=== PATIENT | female | born 1955 | race Two or more races ===

== ENCOUNTER → 2016-12-08 | Outpatient (CLI) | payer OTHER ==
[~2016-12-08] MED LIST: LEVOTHYROXINE PO; PANT40TA3 PO
--- NOTE | 2016-12-08 22:08 | HKNOTE ---
DATE OF SERVICE: 12/08/2016 INTERVAL HISTORY: The patient presents today for a followup examination on her right knee. She was seen initially in the beginning of October and noted to have moderate to advanced osteoarthritis of her right knee. She has had no conservative modalities; therefore, a Monovisc injection was requested and authorized. The patient is here today for her injection. She is having some mild discomfort. Denies any fevers or chills. She elected to proceed with the injection today. PHYSICAL EXAMINATION: Today, she is alert and oriented x4 in no acute distress. Exam of right knee demonstrates range of motion to be 0 to 115 degrees. Varus and valgus forces are stable. There is no effusion. She does have 2+ patellofemoral crepitus. There is no erythema or warmth noted. Compartments are soft. She is neurovascularly intact distally. IMAGING: None done today. ASSESSMENT: Right knee osteoarthritis. PLAN: 1. Monovisc injection to the right knee done under sterile conditions today. 2. Ice and rest. 3. Increase physical activity. 4. Follow up p.r.n. PROCEDURE NOTE: The procedure was fully explained to the patient. Informed consent was obtained prior to starting the procedure. The area was prepped and draped in sterile fashion using Betadine. Ethyl chloride was used to anesthetize the superolateral portion of the right knee. A 22-gauge needle was introduced in the superior lateral aspect of the right knee and 4cc of Monovisc was injected. The patient tolerated the procedure well. Sterile bandage was then applied. All questions and concerns were addressed at the time of the procedure. Dictated By: MARY LOVETT/MINGO Conf#: [id number] DID#: [id number] MTDD
== END | disposition home or self-care (01) ==
LOC: HKI 09:37
PROVIDERS: ATTEND Orthopaedic Surgery
DX: M17.11 Unilateral primary osteoarthritis, right knee (principal)

== ENCOUNTER 2019-04-11 11:28 | Observation (INO) | payer OTHER ==
[~2019-04-11] VITALS: Ht 149.9 cm; Wt 96.0 kg
[2019-04-11] VITALS (16 sets, daily range): BP systolic 108–138; BP diastolic 53–77; PULSE 58–68; RESP 12–22; Ht 149.9 cm; Wt 96.0 kg
[~2019-04-11 11:28] MED LIST changes: +CEFAZOLIN 2 GM/50 ML (PMX) 50 ML IVPB ONE; +SOD CHLORIDE 0.9% 1,000 ML IV SCH; +SUCCINYLCHOLINE CHLORIDE 100 MG/5 ML SYG IV ONE
[2019-04-11] MEDS ORDERED: MELO15TA30 PO (12:18)
[2019-04-11] MEDS ORDERED: LEVO75TA65 PO (12:18)
[2019-04-11] MEDS ORDERED: FAMO20TA18 PO (12:19)
[2019-04-11] MEDS ORDERED: MOME13HF INHALATION (12:19)
[2019-04-11] MEDS ORDERED: CEFAZOLIN 1 GM INJ ONE (13:22)
[2019-04-11] MEDS ORDERED: ONDANSETRON 4 MG INJ ONE (13:22)
[2019-04-11] MEDS ORDERED: FENTAnyl 50 MCG/ML VIAL ONE ×3 (13:22→16:32)
[2019-04-11] MEDS ORDERED: ROCURONIUM 50 MG INJ ONE (13:22)
[2019-04-11] MEDS ORDERED: ROPIVACAINE 0.5 % 30 ML VIAL ONE (13:22)
[2019-04-11] MEDS ORDERED: DEXAMETHASONE 4 MG/ML 5 ML INJ ONE (13:22)
[2019-04-11] MEDS ORDERED: MIDAZOLAM 1 MG/ML 2 ML INJ ONE (13:22)
[2019-04-11] MEDS ORDERED: NEOSTIGMINE 3 MG/3 ML SYRINGE ONE (13:22)
[2019-04-11] MEDS ORDERED: GLYCOPYRROLATE 0.4 MG INJ ONE (13:22)
[2019-04-11] MEDS ORDERED: PROPOFOL 20 ML ONE (13:22)
[2019-04-11] MEDS ORDERED: BUPIVACAINE 0.25%/EPI (SDV) 30 ML INJ ONE (13:47)
--- NOTE | 2019-04-11 13:51 | HPN ---
Date/Time of Note Date/Time of Note DATE: 04/11/19 TIME: 13:51 Interval H&P Admission Note Pt. seen H&P reviewed: No system changes MELBA GUSMAN MD April 11, 2019 13:51
--- NOTE | 2019-04-11 13:51 | PREAC ---
Date/Time of Note Date/Time of Note DATE: 04/11/19 TIME: 13:48 Anesthesia Eval and Record Evaluation Time Pre-Procedure Interview DATE: 04/11/19 TIME: 13:48 Age 63 Sex female NPO: 8 hrs Preoperative diagnosis VENTRAL HERNIA, NO OBSTRUCTION Planned procedure OPEN VENTRAL HERNIA REPAIR WITH MESH Past Medical History Past Medical History: Includes Cardio: Dyslipidemia Endo: Diabetes (PRE DM), Hypothyroid Pulm: Sleep Apnea, Asthma GI: GERD, Morbid obesity, Other (ESOPHAGEAL DYSMOTILITY, FATTY LIVER) Surgery & Anesthesia Issues No known issue Meds Anticoagulation: No Beta Eric within 24 hr: No Reason Beta Eric not given: Pt. not on B-Eric Reported Medications Mometasone-Formoterol (Dulera) 200-5 Mcg/Inh - 13 Gm Hfa.aer.ad, 2 PUFFS INHALATION BID, #1 INHALER 04/11/19 Famotidine* (Famotidine*) 20 Mg Tablet, 20 MG PO BID, #60 TAB 04/11/19 Meloxicam* (Mobic*) 15 Mg Tablet, 15 MG PO DAILY, #30 TAB 04/11/19 Levothyroxine Sodium* (Levoxyl*) 75 Mcg Tablet, 75 MCG PO BEFORE BREAKFAST, #30 TAB 04/11/19 Discontinued Reported Medications [Levothyroxine] No Conflict Check, PO QAM 02/26/16 Discontinued Scripts Pantoprazole* (Protonix*) 40 Mg Tablet.dr, 40 MG PO DAILY for 30 Days, TAB Prov:SHON MARC 03/15/16 Current Medications Sodium Chloride 1,000 ml @ 75 mls/hr [id number] IV Last administered on 04/11/19at 12:45; Admin Dose 75 MLS/HR; Start 04/11/19 at 07:00; Stop 04/11/19 at 20:19 Meds reviewed: Yes Allergies Coded Allergies: No Known Allergy (Unverified , 04/11/19) Allergies Reviewed: Yes Labs/Studies Labs Reviewed: Reviewed by anesthesiologist test: N/A Studies: ECG (NL), CXR (INCREASED INRESTITIAL MARKINGS) Pre-procedure Exam Last vitals Vital Signs Date Temp Pulse Resp B/P (MAP) Pulse Ox O2 O2 Flow FiO2 Time Delivery Rate 04/11/19 97.2 64 16 121/67 96 Room Air 12:56 (85) Airway: Adequate mouth opening, Adequate thyromental dist Mallampati: Mallampati II Teeth: Normal Lung: Normal Heart: Normal ASA Physical Status ASA physical status: 3 Emergency: None Planned Anesthetic General/MAC: ETT Nerve block: TAP (bilateral) Planned Pain Management Single shot nerve block, Parenteral pain med Pre-operative Attestations Prior to commencing anesthesia and surgery, the patient was re-evaluated, there was verification of: *The patient's identity *The results of appropriate recent lab work and preoperative vital signs *The above evaluation not changing prior to induction *Anesthetic plan, risk benefits, alternative and complications discussed with patient/family; questions answered; patient/family understands, accepts and wishes to proceed. Niko Allen M.D. April 11, 2019 13:51
[2019-04-11] MEDS ORDERED: ALBUTEROL 0.083% (NEB) 2.5 MG/3 ML AMP HHN PRN (14:00)
[2019-04-11] MEDS ORDERED: hydrALAzine 20 MG INJ IV PRN (14:00)
[2019-04-11] MEDS ORDERED: TRIMETHOBENZAMIDE 100 MG/ML VIAL IM PRN (14:00)
[2019-04-11] MEDS ORDERED: FENTAnyl 50 MCG/ML VIAL IV PRN ×3 (14:00)
[2019-04-11] MEDS ORDERED: LABETALOL HCL 20MG INJ IV PRN (14:00)
[2019-04-11] MEDS ORDERED: EPHEDrine 25 MG/5 ML SYG IV PRN (14:00)
[2019-04-11] MEDS ORDERED: MEPERIDINE 25 MG INJ IV PRN (14:00)
[2019-04-11] MEDS ORDERED: ONDANSETRON 4 MG INJ IV PRN ×3 (14:00→23:30)
[2019-04-11] MEDS ORDERED: MIDAZOLAM 1 MG/ML 2 ML INJ IV PRN (14:00)
[2019-04-11] MEDS ORDERED: DIPHENHYDRAMINE 50 MG INJ IV PRN (14:00)
[2019-04-11] MEDS ORDERED: OXYCODONE/ACETAMINOPHEN (5/325) TAB PO PRN ×3 (14:00→17:00)
[2019-04-11] MEDS ORDERED: IPRATROPIUM (NEB) 0.5 MG/2.5 ML AMP HHN PRN (14:00)
[2019-04-11] MEDS ORDERED: HYDROmorphONE 1 MG/5 ML IV SYRINGE IV PRN ×3 (14:00)
[2019-04-11] MEDS ORDERED: POLYMYXIN/BACITRACIN 1L IRRIG IRR ONE (14:49)
[2019-04-11] MEDS ORDERED: SUGAMMADEX SODIUM 200 MG/2 ML VIAL IV ONE (16:22)
[2019-04-11] MEDS ORDERED: KETOROLAC 30 MG INJ ONE (16:46)
--- NOTE | 2019-04-11 16:48 | PAC ---
Date/Time of Note Date/Time of Note DATE: 04/11/19 TIME: 16:48 Post-Anesthesia Notes Post-Anesthesia Note Last documented vital signs Vital Signs Date Temp Pulse Resp B/P (MAP) Pulse Ox O2 O2 Flow FiO2 Time Delivery Rate 04/11/19 99.1 16:44 04/11/19 64 16 121/67 96 Room Air 12:56 (85) Activity: WNL Respiratory function: WNL Cardiovascular function: WNL Mental status: Baseline Pain reasonably controlled: Yes Hydration appropriate: Yes Nausea/Vomiting absent: Yes Niko Allen M.D. April 11, 2019 16:48
[2019-04-11] MEDS ORDERED: KETOROLAC 30 MG INJ IM STA (16:55)
--- NOTE | 2019-04-11 16:55 | OPR ---
Date/Time of Note Date/Time of Note DATE: 04/11/19 TIME: 16:42 Operative Report Procedure Date: April 11, 2019 Preoperative Diagnosis Ventral hernia with chronically incarcerated fat Postoperative Diagnosis Ventral hernia with chronically incarcerated fat Operation/Procedure Performed 1. Open repair of ventral hernia with mesh 2. Lysis of adhesions 3. Omentectomy 4. Placement of drain Surgeon see signature line Buckle Gluer RADHA Nicolas Anesthesia Type: general Anesthesiologist: Niko Allen M.D. Estimated Blood Loss: 50 - 100 ml's Transfusion none Specimen Hernia sac and contents Grafts/Implants Bard Ventralex ST Mesh 8cm round Tubes/Drains 15 Serbian round Sandeep drain Complications none Pt Condition Post Procedure: stable Disposition: PACU Indications Patient is an morbidly obese 63-year-old female who presented to the office with a painful bulge involving the midline ventral abdominal wall. She reported increasing pain and discomfort which is limiting her activities of daily living. She was diagnosed on physical exam as having a ventral hernia which was chronically incarcerated with fat. This was confirmed via CT scan. Both operative and nonoperative management was discussed with the patient along with risk and benefits of each. Given the patient's morbid obesity we discussed that she is at higher risk for perioperative morbidity and hernia recurrence. The patient understood all of these risks. Given her severe pain she opted for surgical intervention. The patient was scheduled for elective repair with mesh. All risks and benefits of the procedure including, but not limited to: Wound infection, excessive bleeding, postoperative seroma/hematoma formation, hernia recurrence, chronic pain, etc. were all discussed with the patient in full detail. The patient fully understood and wished to proceed with the procedure. Informed consent was obtained. Procedure Description Patient was brought to the operating room and placed supine on the operating table. Bilateral sequential compression devices were placed on both lower extremities. A dose of broad-spectrum perioperative intravenous antibiotics was given. After the induction of smooth general anesthesia the patient's abdomen was prepped and draped in standard surgical fashion. After performance of the surgical timeout a periumbilical midline incision was made using a 15 blade scalpel. Incision was carried down through the skin and subcutaneous tissues. In the subcutaneous tissues a large hernia sac with incarcerated fat was identified. It was dissected circumferentially from surrounding tissues. Dis section was continued to the level of the anterior rectus fascia. The large hernia sac involved the umbilicus. The umbilicus was dissected off. The fascia was cleaned circumferentially around the sac. The sac was then opened atraumatically. There was viable omentum identified within the sac. Some portions were densely scarred within the sac. The superior aspect of the sac a small portion of colon was identified adhered to the sac. This was gently dissected off. Colon was then reduced back into the peritoneal cavity. A piece of Bard Ventralex ST Mesh 8cm round was used to repair the hernia defect in an underlay fashion. It was secured in place using interrupted 2-0 PDS sutures. The mesh was soaked in antibiotic irrigation prior to insertion into the field. With the repair complete it was inspected and noted to be tension-free and hemostatic. The wound cavity was then irrigated with more antibiotic irrigation. The fascia was then reapproximated over the mesh using #1 PDS sutures in [id number] fashion. The umbilicus was then tacked back down to the fascia using interrupted 3-0 Vicryl suture. Given the amount of space a 15 Serbian round Sandeep drain was placed on top of the fascia and brought out through a separate stab wound in the left lower quadrant. Drain was secured in place using 2-0 nylon sutures and hooked up to bulb suction. Incision was then closed in layers using interrupted 2-0 Vicryl sutures for the subcutaneous tissues. The skin was reapproximated using skin akanksha. 0.25% Marcaine was injected around the area of the incision. Incision was cleaned and sterile dressings were applied as well as an abdominal binder. Patient was awoken from anesthesia and transferred to the recovery room in stable condition. All counts were correct at the end of the case 2. MELBA GUSMAN MD April 11, 2019 16:55
[2019-04-11] MEDS ORDERED: IBUPROFEN 600 MG TAB PO PRN (17:00)
[2019-04-11] MEDS ORDERED: KETOROLAC 30 MG INJ IV PRN (17:00)
[2019-04-11] MEDS ORDERED: HYDROmorphONE 1 MG/ML SYG IV PRN (17:00)
[2019-04-11] MEDS: ACETAMINOPHEN 325 MG TAB PO PRN (20:05)
[2019-04-11] MEDS: SOD CHLORIDE 0.9% 1,000 ML IV SCH ×2 (21:29→22:53)
[2019-04-11] MEDS: FAMOTIDINE 20 MG TAB PO SCH (21:31)
[2019-04-11] MEDS: DOCUSATE SODIUM 100 MG CAP PO SCH (21:31)
[2019-04-11] MEDS ORDERED: METOCLOPRAMIDE 10 MG INJ ONE (22:46)
[2019-04-11] MEDS ORDERED: METOCLOPRAMIDE 10 MG INJ IV PRN (23:00)
[2019-04-12] VITALS (8 sets, daily range): BP systolic 92–116; BP diastolic 53–65; PULSE 59–71; RESP 18–20
[2019-04-12] MEDS ORDERED: METOCLOPRAMIDE 10 MG INJ IV SCH
[2019-04-12] MEDS: OXYCODONE/ACETAMINOPHEN (5/325) TAB PO PRN ×2 (04:55→11:51)
[2019-04-12] MEDS: DOCUSATE SODIUM 100 MG CAP PO SCH ×2 (08:40→11:49)
[2019-04-12] MEDS: FAMOTIDINE 20 MG TAB PO SCH (08:40)
[2019-04-12] MEDS: SOD CHLORIDE 0.9% 1,000 ML IV SCH (08:41)
[2019-04-12] MEDS: ACETAMINOPHEN 325 MG TAB PO PRN (08:41)
--- NOTE | 2019-04-12 10:27 | PN ---
Date/Time of Note Date/Time of Note DATE: 04/12/19 TIME: 10:24 Assessment/Plan Lines/Catheters IV Catheter Type (from Nrsg): Peripheral IV Wolff in Place (from Nrsg): No Assessment/Plan Assessment/Plan 63F S/P Open ventral hernia repair with mesh * H/L IVF * OOB/IS * Continue drain * Surgically stable for discharge home if medically cleared. Will remove akanksha and drain in office. Will need drain teaching prior to discharge * Follow up in office in 2 weeks Discussed with patient and nurse at bedside Subjective 24 Hr Interval Summary Doing well. Pain controlled. Tolerating diet. No nausea. Afebrile. Drain output 70cc old blood. Exam/Review of Systems Vital Signs Vitals Vital Signs Date Temp Pulse Resp B/P (MAP) Pulse Ox O2 O2 Flow FiO2 Time Delivery Rate 04/12/19 71 08:00 04/12/19 97.6 19 92/54 (67) 95 Room Air 07:43 04/11/19 3.0 17:41 Intake and Output 04/11/19 04/11/19 04/12/19 1515:00 23:00 07:00 IntakeIntake Total 3000 ml 1000 ml OutputOutput Total 100 ml 20 ml BalanceBalance 2900 ml 980 ml Exam Free Text/Dictation GENERAL: Morbidly obese, AAO x 3, NAD CARDIOVASCULAR: S1S1 RRR, RESPIRATORY: CTA b/l ABDOMEN: morbidly obese, soft, +BS, appropriate incisional tenderness to palpation. No rebound or guarding. DRESSING: mild saturation EXTREMITIES: FROM x 4 Results Result Diagram: 04/12/19 0513 04/12/19 0513 MELBA GUSMAN MD April 12, 2019 10:27
--- NOTE | 2019-04-12 13:09 | HP ---
Date/Time of Note Date/Time of Note DATE: 04/12/19 TIME: 13:07 Assessment/Plan VTE Prophylaxis Risk score (from Nsg)>0 risk: 4 SCD applied (from Ns): Yes Pharmacological prophylaxis: NA/contraindicated Pharm contraindication: surgical contra Lines/Catheters IV Catheter Type (from Nrsg): Peripheral IV Urinary Cath still in place: No Assessment/Plan Assessment/Plan -Ventral hernia with chronically incarcerated fat. Status post open repair of ventral hernia with mesh by Dr. Steele on 04/11/2019. Continue IV fluid fluids and postoperative antibiotic. Continue Percocet and Dilaudid as needed for pain and Zofran as needed for nausea. Advance diet per surgical recommendations. -Hypothyroidism, continue Synthroid. -Asthma, no acute issues -Morbid obesity with BMI of 42.7 Further recommendations based on clinical course. Plan of care discussed with Dr. Delgado. Result Diagram: 04/12/19 0513 04/12/19 0513 Results 24hrs Laboratory Tests Test 04/12/19 05:13 White Blood Count 10.6 # Red Blood Count 4.08 #L Hemoglobin 12.9 # Hematocrit 38.8 # Mean Corpuscular Volume 95.1 Mean Corpuscular Hemoglobin 31.6 Mean Corpuscular Hemoglobin Concent 33.2 Red Cell Distribution Width 12.2 Platelet Count 239 Mean Platelet Volume 10.3 Immature Granulocytes % 0.500 H Neutrophils % 89.6 H Lymphocytes % 7.7 L Monocytes % 2.1 Eosinophils % 0.0 Basophils % 0.1 Nucleated Red Blood Cells % 0.0 Immature Granulocytes # 0.050 H Neutrophils # 9.5 H Lymphocytes # 0.8 Monocytes # 0.2 L Eosinophils # 0.0 Basophils # 0.0 Nucleated Red Blood Cells # 0.0 Sodium Level 139 Potassium Level 4.3 Chloride Level 110 Carbon Dioxide Level 23 Anion Gap 6 Blood Urea Nitrogen 15 Creatinine 0.49 Est Glomerular Filtrat Rate mL/min > 60 Glucose Level 141 Calcium Level 8.3 L HPI/ROS Admit Date/Time Admit Date/Time April 11, 2019 at 16:52 Hx of Present Illness Patient is 63-year-old female with history of asthma, obesity, and prediabetes. Patient has a 4-year history of ventral hernia and was evaluated by Dr. Steele in the general surgery consultation. Patient wanted definitive surgical intervention for her hernia. Patient was brought to the hospital and underwent open ventral hernia repair with mesh. Postoperatively patient exp eriencing significant pain and patient is admitted for further evaluation and management to medical surgical floor. ROS 12 point review of system is negative except for what mentioned in HPI PMH/Family/Social Past Medical History Medical History: other (Asthma, prediabetes) Medications Current Medications Hydromorphone HCl (Dilaudid) 1 mg Q4 PRN IV PAIN LEVEL 6-10 Last administered on 04/11/19at 21:32; Admin Dose 1 MG; Start 04/11/19 at 17:00 Oxycodone/ Acetaminophen (Percocet (5/ 325)) 1 tab Q6H PRN PO PAIN LEVEL 6-10 Last administered on 04/12/19 11:51; Admin Dose 1 TAB; Start 04/11/19 at 17:00 Ketorolac Tromethamine (Toradol) 30 mg Q6H PRN IV PAIN Last administered on 04/11/19 18:48; Admin Dose 30 MG; Start 04/11/19 at 17:00; Stop 04/14/19 at 16:59 Acetaminophen (Tylenol Tab) 650 mg Q6H PRN PO MILD PAIN(1-3)OR ELEVATED TEMP Last administered on 04/12/19 08:41; Admin Dose 650 MG; Start 04/11/19 at 17:00 Ibuprofen (Motrin) 600 mg Q6H PRN PO PAIN LEVEL 1-5; Start 04/11/19 at 17:00 Famotidine (Pepcid) 20 mg DAILY PO Last administered on 04/12/19 08:40; Admin Dose 20 MG; Start 04/11/19 at 21:00 Sodium Chloride 1,000 ml @ 100 mls/hr Q10H IV Last administered on 04/12/19 08:41; Admin Dose 100 MLS/HR; Start 04/11/19 at 16:33 Docusate Sodium (Colace) 100 mg TID PO Last administered on 04/12/19 11:49; Admin Dose 100 MG; Start 04/11/19 at 21:00 Oxycodone/ Acetaminophen (Percocet (5/ 325)) 2 tab Q4H PRN PO MODERATE PAIN LEVEL 4-6; Start 04/11/19 at 17:00 Metoclopramide HCl (Reglan) 10 mg Q6H PRN IV NAUSEA Last administered on 04/11/19at 22:54; Admin Dose 10 MG; Start 04/11/19 at 23:00 Ondansetron HCl (Zofran Inj) 4 mg Q4 PRN IV NAUSEA AND/OR VOMITING; Start 04/11/19 at 23:30 Coded Allergies: No Known Allergy (Unverified , 04/11/19) Past Surgical History Past Surgical Hx: other ( x2) Family History Significant Family History: no pertinent family hx Social History Alcohol Use: none Smoking Status: Never smoker Drug Use: none Exam/Review of Systems Vital Signs Vitals Vital Signs Date Temp Pulse Resp B/P (MAP) Pulse Ox O2 O2 Flow FiO2 Time Delivery Rate 04/12/19 63 12:00 04/12/19 98.3 19 92/53 (66) 95 Room Air 11:07 04/11/19 3.0 17:41 Intake and Output 04/11/19 04/11/19 04/12/19 1515:00 23:00 07:00 IntakeIntake Total 3000 ml 1000 ml OutputOutput Total 100 ml 20 ml BalanceBalance 2900 ml 980 ml Exam Constitutional: alert, oriented Head: normocephalic Neck: supple Respiratory: clear to auscultation, normal air movement Cardiovascular: nl pulses Gastrointestinal: soft, tender, other (S/p open ventral hernia repair) Musculoskeletal: nl extremities to inspection Extremities: normal pulses Neurological: nl mental status Skin: nl SHON Sheffield April 12, 2019 13:09
[2019-04-12] MEDS ORDERED: ONDA4TAB13 PO (14:03)
[2019-04-12] MEDS ORDERED: OXYC-438 PO (14:03)
--- NOTE | 2019-04-12 21:01 | DS ---
Date/Time of Note Date/Time of Note DATE: 04/12/19 TIME: 20:58 Discharge Summary Admission/Discharge Info Admit Date/Time April 11, 2019 at 16:52 Discharge Date/Time April 12, 2019 at 16:30 Patient Condition: Stable Hx of Present Illness Patient is 63-year-old female with history of asthma, obesity, and prediabetes. Patient has a 4-year history of ventral hernia and was evaluated by Dr. Steele in the general surgery consultation. Patient wanted definitive surgical intervention for her hernia. Patient was brought to the hospital and underwent open ventral hernia repair with mesh. Postoperatively patient experi encing significant pain and patient is admitted for further evaluation and management to medical surgical floor. Hospital Course -Ventral hernia with chronically incarcerated fat. Status post open repair of ventral hernia with mesh by Dr. Steele on 04/11/2019. Continue IV fluid fluids and postoperative antibiotic. Continue Percocet and Dilaudid as needed for pain and Zofran as needed for nausea. Advance diet per surgical recommendations. RN to teach pt how to empty CECILIA drain. -Hypothyroidism, continue Synthroid. -Asthma, no acute issues -Morbid obesity with BMI of 42.7 Plan of care discussed with Dr. Delgado. Home Meds Active Scripts Oxycodone HCl/Acetaminophen (Oxycodone-Acetaminophen 5-325) 1 Each Tablet, 1 TAB PO Q6H PRN for PAIN LEVEL 6-10, #30 TAB Prov:SHON MARC 04/12/19 Ondansetron Hcl* (Zofran*) 4 Mg Tab, 4 MG PO Q4H PRN for NAUSEA AND OR VOMITING, #30 TAB Prov:SHON MARC 04/12/19 Reported Medications Mometasone-Formoterol (Dulera) 200-5 Mcg/Inh - 13 Gm Hfa.aer.ad, 2 PUFFS INHALATION BID, #1 INHALER 04/11/19 Famotidine* (Famotidine*) 20 Mg Tablet, 20 MG PO BID, #60 TAB 04/11/19 Meloxicam* (Mobic*) 15 Mg Tablet, 15 MG PO DAILY, #30 TAB 04/11/19 Levothyroxine Sodium* (Levoxyl*) 75 Mcg Tablet, 75 MCG PO BEFORE BREAKFAST, #30 TAB 04/11/19 Discontinued Reported Medications [Levothyroxine] No Conflict Check, PO QAM 02/26/16 Discontinued Scripts Pantoprazole* (Protonix*) 40 Mg Tablet., 40 MG PO DAILY for 30 Days, TAB Prov:SHON MARC 03/15/16 Follow-up Plan Follow-up with Dr. Steele in 1 to 2 weeks Primary Care Provider Not On Staff Doctor Time spent on discharge: > 30 minutes Pending Labs Laboratory Tests Test 04/12/19 05:13 White Blood Count 10.6 10^3/ul (4.8-10.8) Red Blood Count 4.08 10^6/ul (4.20-5.40) Hemoglobin 12.9 g/dl (12.0-16.0) Hematocrit 38.8 % (37.0-47.0) Mean Corpuscular Volume 95.1 fl (82.0-101.0) Mean Corpuscular Hemoglobin 31.6 pg (29.0-33.0) Mean Corpuscular Hemoglobin Concent 33.2 g/dl (32.0-37.0) Red Cell Distribution Width 12.2 % (11.5-14.5) Platelet Count 239 10^3/UL (140-415) Mean Platelet Volume 10.3 fl (7.4-10.4) Immature Granulocytes % 0.500 % (0.001-0.429) Neutrophils % 89.6 % (39.0-77.0) Lymphocytes % 7.7 % (15.0-51.0) Monocytes % 2.1 % (0.0-11.0) Eosinophils % 0.0 % (0.0-7.0) Basophils % 0.1 % (0.0-2.0) Nucleated Red Blood Cells % 0.0 /100WBC (0.0-0.0) Immature Granulocytes # 0.050 10^3/ul (0.0-0.031) Neutrophils # 9.5 10^3/ul (1.6-7.5) Lymphocytes # 0.8 10^3/ul (0.8-2.9) Monocytes # 0.2 10^3/ul (0.3-0.9) Eosinophils # 0.0 10^3/ul (0.0-0.5) Basophils # 0.0 10^3/ul (0.0-0.1) Nucleated Red Blood Cells # 0.0 10^3/ul (0.0-0.0) Sodium Level 139 mmol/L (135-144) Potassium Level 4.3 mmol/L (3.5-5.1) Chloride Level 110 mmol/L (97-110) Carbon Dioxide Level 23 mmol/L (21-31) Anion Gap 6 (5-13) Blood Urea Nitrogen 15 mg/dl (7-20) Creatinine 0.49 mg/dl (0.44-1.00) Est Glomerular Filtrat Rate mL/min > 60 mL/min (>60) Glucose Level 141 mg/dl (70-220) Calcium Level 8.3 mg/dl (8.4-10.2) SHON MARC April 12, 2019 21:01
== END 2019-04-12 16:30 | disposition home or self-care (01) ==
LOC: SDS 11:28 → REC 16:52 → 6WM 19:48
PROVIDERS: ADMIT Surgery; ATTEND Surgery
DX: K43.9 Ventral hernia without obstruction or gangrene (principal); E03.9 Hypothyroidism, unspecified; J45.909 Unspecified asthma, uncomplicated; E66.01 Morbid (severe) obesity due to excess calories; Z68.41 Body mass index [BMI] 40.0-44.9, adult
CPT/HCPCS: 49560; 49568; 80048; 85025; 88302; C1781; J0690; J1100; J1170; J1885; J2250; J2405; J2765; J2795; J3010; J7030; Z7500; Z7512; Z7610; 99217; G0378; J2710